=== PATIENT | male | born 1980 | race American Indian/Alaskan Native ===

== ENCOUNTER 2020-02-20 07:25 | Emergency (ER) | payer SELFPAY ==
[2020-02-20 07:49] VITALS: BP 122/81
[2020-02-20] MEDS ORDERED: CLINDAMYCIN 150 MG/ML VIAL 6 ML IM STA (08:50)
[2020-02-20] MEDS ORDERED: oxyCODONE /ACETAMINOPHEN 5-325MG TAB PO ONE (08:50)
--- NOTE | 2020-02-20 08:59 | Emergency Department Report ---
- General Chief complaint: Skin/Abscess/Foreign Body Stated complaint: SPIDER BITE ON NECK Time Seen by Provider: 02/20/20 08:32 Source: patient Mode of arrival: Ambulatory Limitations: No Limitations - History of Present Illness MD complaint: abscess/boil (To the left neck tender present for the last 4 to 5 days progressively worsening since the onset. No fever, chills, sweats no odynophagia no dysphagia no voice change no pain to the ear no headache) Tetanus Up to Date: yes Location: neck Severity: mild, moderate Quality: dull Consistency: constant Improves with: none Worsens with: palpation Context: none Associated symptoms: denies other symptoms Treatments Prior to Arrival: none - Related Data Previous Rx's Medication Instructions Recorded Last Taken Type Clindamycin [Clindamycin CAP] 150 mg PO Q8HR #30 capsule 02/20/20 Unknown Rx Ketorolac [Toradol] 10 mg PO Q6H PRN #10 tablet 02/20/20 Unknown Rx Allergies Allergy/AdvReac Type Severity Reaction Status Date / Time No Known Allergies Allergy Unverified 02/20/20 09:27 Abscess Boil HPI - HPI Chief Complaint: Skin/Abscess/Foreign Body Stated Complaint: SPIDER BITE ON NECK Time Seen by Provider: 02/20/20 08:32 Home Medications: Previous Rx's Medication Instructions Recorded Last Taken Type Clindamycin [Clindamycin CAP] 150 mg PO Q8HR #30 capsule 02/20/20 Unknown Rx Ketorolac [Toradol] 10 mg PO Q6H PRN #10 tablet 02/20/20 Unknown Rx Allergies/Adverse Reactions: Allergies Allergy/AdvReac Type Severity Reaction Status Date / Time No Known Allergies Allergy Unverified 02/20/20 09:27 ED Review of Systems ROS: Stated complaint: SPIDER BITE ON NECK Other details as noted in HPI Comment: All other systems reviewed and negative ED Past Medical Hx - Past Medical History Previous Medical History?: No - Surgical History Past Surgical History?: No - Medications Home Medications: Home Medications Medication Instructions Recorded Confirmed Last Taken Type Clindamycin [Clindamycin CAP] 150 mg PO Q8HR #30 capsule 02/20/20 Unknown Rx Ketorolac [Toradol] 10 mg PO Q6H PRN #10 tablet 02/20/20 Unknown Rx ED Physical Exam - General Limitations: No Limitations General appearance: alert, in no apparent distress - Head Head exam: Present: atraumatic, normocephalic - Eye Eye exam: Present: normal appearance, PERRL, EOMI - ENT ENT exam: Present: normal exam, normal orophraynx, mucous membranes moist - Neck Neck exam: Present: tenderness - Expanded Neck Exam Expanded Neck exam: Absent: anterior neck swelling 1 - Abscess/wound to this region with scant discharge and local cellulitis tenderness with palpation. No subcutaneous emphysema is noted. No mastoid involvement - Respiratory Respiratory exam: Present: normal lung sounds bilaterally. Absent: respiratory distress - Cardiovascular Cardiovascular Exam: Present: regular rate, normal rhythm. Absent: systolic murmur, diastolic murmur, rubs, gallop - GI/Abdominal GI/Abdominal exam: Present: soft, normal bowel sounds. Absent: distended, tenderness, guarding, hyperactive bowel sounds, hypoactive bowel sounds, organomegaly - Rectal Rectal exam: Present: deferred - Extremities Exam Extremities exam: Present: normal inspection, full ROM, normal capillary refill - Back Exam Back exam: Present: normal inspection, full ROM. Absent: CVA tenderness (R), CVA tenderness (L), paraspinal tenderness, vertebral tenderness - Neurological Exam Neurological exam: Present: alert, oriented X3, CN II-XII intact, normal gait - Psychiatric Psychiatric exam: Present: normal affect, normal mood. Absent: anxious, flat affect, manic, homicidal ideation - Skin Skin exam: Present: warm, dry, erythema, other (Wound with surrounding cellu litis as stated above. Also has a psoriasis rash to the legs). Absent: rash, diaphoretic, urticaria, vesicles, pallor, abrasion, ecchymosis ED Course Vital Signs 02/20/20 07:45 Temperature 98.4 F Pulse Rate 99 H Respiratory 18 Rate Blood Pressure 122/81 O2 Sat by Pulse 100 Oximetry - Procedure Description Procedures done: PRE-OP DIAGNOSIS: *Abscess. POST-OP DIAGNOSIS: Same. PROCEDURE: incision and drainage of abscess. Performing Physician/advanced practice provider: Anne Tim_. . PROCEDURE: A timeout protocol was performed prior to initiating the procedure. The area was prepared and draped in the usual, sterile manner. The site was anesthetized with 2% lidocaine without epinephrine. A linear incision was along the local skin lines was made and the purulent material expressed. Wound was extensively the debridement the abcess was explored thoroughly and sequestered pockets were opened. Wound was irrigated with normal saline and bleeding was minimal. Packing: Quarter inch iodoform packing. . Followup: The patient tolerated the procedure well without complications. Standard post-procedure care is explained and return precautions are given. Critical care attestation.: If time is entered above; I have spent that time in minutes in the direct care of this critically ill patient, excluding procedure time. ED Disposition Clinical Impression: Abscess of neck Disposition: DC-01 TO HOME OR SELFCARE Is pt being admited?: No Does the pt Need Aspirin: No Condition: Stable Instructions: Cellulitis (ED), Abscess (ED) Additional Instructions: Please have your wound reevaluated in 24 to 48 hours as we discussed Prescriptions: Clindamycin [Clindamycin CAP] 150 mg PO Q8HR #30 capsule Ketorolac [Toradol] 10 mg PO Q6H PRN #10 tablet PRN Reason: Pain Referrals: PRIMARY CAREMD [Primary Care Provider] - 3-5 Days [facility] [Provider Group] - 3-5 Days
== END 2020-02-20 09:54 | disposition home or self-care (01) ==
LOC: ED 07:25
DX: L02.11 Cutaneous abscess of neck (principal); Z79.899 Other long term (current) drug therapy
CPT/HCPCS: 96372; 99282